=== PATIENT | female | born 1985 | race Caucasian/White ===

== ENCOUNTER 2016-07-17 17:33 | Emergency (ER) | payer OTHER ==
[~2016-07-17] VITALS: Ht 162.6 cm; Wt 68.0 kg
[~2016-07-17 17:33] MED LIST: CHOL10003; CLTR1PV45; HYDR-3720 PO; HYOS0.1217 PO; IBP800T PO; NAPR-243 PO; NITR100C10; TRAM-21 PO; TRM50T PO
--- NOTE | 2016-07-17 17:51 | ED General ---
General Chief Complaint: Laceration Stated Complaint: HAND LAC Nursing Triage Note: PT CO OF LAC BETWEEN THUMB AND FIRST FINGER, STATES GLASS SHARD FROM BROKEN BOWL THRU SKIN STATES PULLED OUT LARGE PIECE OF GLASS OUT. NO BLEEDING NOTED. PT R HAND SWOLLEN Nursing Sepsis Screen: No Definite Risk Source of Information: Patient Exam Limitations: No Limitations History of Present Illness Time Seen by Provider: 17:51 Initial Comments 31-year-old female patient presents to the emergency department with complaints of a laceration to the right hand between the first and second fingers. Patient reports moving a large shard of glass from the hand at home. States she was washing a glass bowl when the ball broke. Location Injury Occurred: home Timing/Duration: 1/2 Hour, Constant Modifying Factors: worse with Movement Allergies and Home Medications Allergies Coded Allergies: No Known Drug Allergies (Verified , 11/13/07) Home Medications Cephalexin 500 Mg Capsule #21 500 MG PO TID Prescribed by: CHRIS CUMMINS on 07/17/162031 Tramadol HCl 50 Mg Tablet #20 50 MG PO Q4H PRN PRN PAIN Prescribed by: CHRIS CUMMINS on 07/17/162031 Constitutional: no symptoms reported Musculoskeletal: see HPI joint pain (rt hand) joint swelling (rt hand) Skin: see HPI other (laceration rt hand) Psychiatric/Neurological: Denies Numbness, Denies Paresthesia, Denies Tingling , Denies Weakness All Other Systems Reviewed Negative Unless Noted: Yes (Negative excepted noted.) Past Ymslpke-Xlqhjy-Ppqnjp Hx Patient Social History Alcohol Use: Denies Use Recreational Drug Use: No Smoking Status: Never a Smoker Former Smoker/When Quit: Apr 04, 2014 Recent Foreign Travel: No Contact w/Someone Who Travel: No Recent Infectious Disease Expo: No Recent Hopitalizations: No Physical Abuse Screen: No Sexual Abuse: No Immunizations Up To Date Tetanus Booster (TDap): More than 5yrs Seasonal Allergies Seasonal Allergies: No Surgeries HX Surgeries: Yes (HAD TUBAL ) Surgeries: Abdominal, Appendectomy Respiratory Hx Respiratory Disorders: No Cardiovascular Hx Cardiac Disorders: No Neurological Hx Neurological Disorders: No Reproductive System Hx Reproductive Disorders: No Sexually Transmitted Disease: No HIV/AIDS: No Female Reproductive Disorders: Endometriosis RN VASCULAR History: IUD Genitourinary Hx Genitourinary Disorders: No Gastrointestinal Hx Gastrointestinal Disorders: No Musculoskeletal Hx Musculoskeletal Disorders: No Endocrine Hx Endocrine Disorders: No HEENT HX ENT Disorders: No Cancer Hx Cancer: No Psychosocial Hx Psychiatric Problems: No Behavioral Health Disorders: Anxiety Integumentary HX Skin/Integumentary Disorder: No Blood Transfusions Hx Blood Disorders: No Reviewed Nursing Assessment Reviewed/Agree w Nursing PMH: Yes Family Medical History Significant Family History: Heart Disease, Cancer Physical Exam Vital Signs Vital Sign - Last 12Hours 07/17/16 07/17/16 17:35 20:54 Temp 97.9 Pulse 85 Resp 18 B/P 119/69 Pulse Ox 100 O2 Delivery Room Air Capillary Refill : Less Than 3 Seconds General Appearance: No Apparent Distress WD/WN Cardiovascular: Normal Peripheral Pulses Extremity: Normal Capillary Refill Normal Range of Motion (patient unable to fully extend the thumb at the MCP joint.) Swelling (web space of the rt hand between the 1st and 2nd fingers with soft tissue tenderness. bony tenderness of the rt 1st and 2nd fingers. ) Other (1.5 cm irregular laceration in the web space of the rt hand between the 1st and 2nd fingers) Neurologic/Psychiatric: Alert Oriented x3 No Motor/Sensory Deficits (2 point discrimination intact the first, second, and third right fingers.) Normal Mood/ Affect Motor Weakness (patient unable to fully extend the thumb at the MCP joint.) Skin: Normal Color Warm/Dry Other (1.5 cm irregular laceration in the web space of the rt hand between the 1st and 2nd fingers) I&D : Site: rt hand Blade Size: 11 I & D Procedure: betadine prep sterile drapes applied sterile dressing applied Packing/Drain: 1/4 [place] Drain Progress 3 cm incision made overlying the palpable foreign body of the posterior hand. FB unable to be located. Skin edges reapproximated with 3-0 ethilon. rt anterior hand laceration then explored, but unable to locate the FB. 1/4 inch marciano drain placed and secured with 3-0 ethilon. blood loss minimal. patient tolerated the procedure well. Progress/Results/Core Measures Results/Orders My Orders Medications Given in ED Vital Signs/I&O Blood Pressure Mean: 86 Diagnostic Imaging Diagonstic Imaging: Xray Plain Films/CT/US/NM/MRI: hand Comments FINDINGS: There is soft tissue gas between the first and second metacarpals. There is no radiopaque foreign body. There is no evidence of fracture. IMPRESSION: Soft tissue gas between the first and second metacarpals is noted. There is no radiopaque foreign body or evidence of acute fracture. Dictated by: Dictated on workstation # [id number] Reviewed: Reviewed by Me (radiology report reviewed by me.) Departure Communication Progress Notes Patient instructed to follow-up with Dr. Amaro as an outpatient for recheck Impression Impression: Primary Impression: Laceration of hand Qualified Code: S61.411A - Laceration without foreign body of right hand, initial encounter Additional Impression: Tendon injury Disposition: HOME, SELF-CARE Condition: Improved Departure-Patient Inst. Decision time for Depature: 18:41 Referrals: BERTA AMARO,LOCAL PHYSICIAN (PCP) Primary Care Physician Patient Instructions: Laceration Repair With Stitches (DC) Add. Discharge Instructions: All discharge instructions reviewed with patient and/or family. Voiced understanding. Medications as instructed. Tylenol Extra Strength over-the- counter as directed for pain. Ibuprofen 800 mg by mouth every 8 hours as needed for pain. Elevate the right hand on pillows, ice pack for 20 minute intervals 6 times daily for 3 days, then heating pad or pack as needed for pain. You may remove the bandage tomorrow morning, shower with antibacterial soap, pat dry, apply triple antibiotics ointment twice daily for 3 days and cover with bandage. Avoid soiling the wound. Follow-up with Dr. Amaro as an outpatient for recheck and for suture removal. Call tomorrow morning for appointment time. Wrist brace as instructed. Follow-up with your family practitioner for recheck if needed. Return to the emergency department for worsened pain, redness, drainage, fever, or any other concerns. Scripts Tramadol HCl 50 Mg [id number] Mg PO Q4H PRN PAIN #20 TAB Ref 0 Prov:CHRIS CUMMINS 07/17/16 Cephalexin 500 Mg [id number] Mg PO TID #21 CAP Ref 0 Prov:CHRIS CUMMINS 07/17/16 Work/School Note: Work Release Form Date Seen in the Emergency Department: Jul 17, 2016 Return to Work: Jul 20, 2016 Other Restrictions Listed Below: left hand activities only until released by Dr. Amaro. Images Extremities-Upper 1 - Laceration 2 - Swelling, Tenderness 1 - Swelling, Tenderness CHRIS CUMMINS Jul 17, 2016 17:51 intervals 6 times daily for 3 days, then heating pad or pack as needed for pain. You may remove the bandage tomorrow morning, shower with antibacterial soap, pat dry, apply triple antibiotics ointment twice daily for 3 days and cover with bandage. Avoid soiling the wound. Follow-up with Dr. Amaro as an outpatient for recheck and for suture removal. Call tomorrow morning for appointment time. Wrist brace as instructed. Follow-up with your family practitioner for recheck if needed. Return to the emergency department for worsened pain, redness, drainage, fever, or any other concerns. Scripts Tramadol HCl 50 Mg [id number] Mg PO Q4H PRN PAIN #20 TAB Ref 0 Prov:CHRIS CUMMINS 07/17/16 Cephalexin 500 Mg [id number] Mg PO TID #21 CAP Ref 0 Prov:CHRIS CUMMINS 07/17/16 Work/School Note: Work Release Form Date Seen in the Emergency Department: Jul 17, 2016 Return to Work: Jul 20, 2016 Other Restrictions Listed Below: left hand activities only until released by Dr. Amaro. Images Extremities-Upper 1 - Laceration 2 - Swelling, Tenderness 1 - Swelling, Tenderness CHRIS CUMMINS Jul 17, 2016 17:51
[2016-07-17] MEDS ORDERED: TETANUS,DIPTH,PERTUSS P/F (BOOSTRIX) 0.5 ML VIAL IM STA (17:58)
--- NOTE | 2016-07-17 18:21 | Diagnostic Imaging Report ---
INDICATION: Laceration to right hand. EXAMINATION: AP, oblique and lateral views of the right hand were obtained. FINDINGS: There is soft tissue gas between the first and second metacarpals. There is no radiopaque foreign body. There is no evidence of fracture. IMPRESSION: Soft tissue gas between the first and second metacarpals is noted. There is no radiopaque foreign body or evidence of acute fracture. Dictated by: Dictated on workstation # [id number]
[2016-07-17] MEDS ORDERED: KETOROLAC 60 MG/2 ML VIAL IM STA (18:57)
[2016-07-17] MEDS ORDERED: LIDOCAINE 2% 20 ML (XYLOCAINE) VIAL INJ ONE (19:00)
[2016-07-17] MEDS ORDERED: BUPIVACAINE 0.5% 30 ML (SENSORCAINE) VIAL INJ ONE (19:00)
[2016-07-17] MEDS ORDERED: RX-TRAMADOL 50 MG (ULTRAM) TAB PPK#4 PO STA (20:29)
[2016-07-17] MEDS ORDERED: RX-CEPHALEXIN (KEFLEX) 250 MG CAP PPK#4 PO STA (20:29)
[2016-07-17] MEDS ORDERED: CEPH500C PO (20:32)
[2016-07-17] MEDS ORDERED: TRAM50TA2 PO (20:32)
[2016-07-17 20:54] VITALS: BP 115/60
== END 2016-07-17 20:54 | disposition home or self-care (01) ==
LOC: EDUNIT# 17:33 → ER 17:34
DX: S61.411A Laceration without foreign body of right hand, initial encounter (principal); S66.821A Laceration of other specified muscles, fascia and tendons at wrist and hand level, right hand, initial encounter; Z23 Encounter for immunization; W25.XXXA Contact with sharp glass, initial encounter; Y92.010 Kitchen of single-family (private) house as the place of occurrence of the external cause; Y93.G1 Activity, food preparation and clean up
CPT/HCPCS: 12001; 73130; 90471; 90715; 96372

== ENCOUNTER 2017-03-10 11:52 | Emergency (ER) | payer OTHER ==
[~2017-03-10] VITALS: Ht 162.6 cm; Wt 68.0 kg
[~2017-03-10 11:52] MED LIST changes: +CEPH500C PO; +TRAM50TA2 PO
--- OUTSIDE RECORDS SUMMARY | 2017-03-10 11:59 | XMS REPORT ---
Author Author ANTONIO GANDHI [facility] eClinicalWorks Address Unknown Phone Unavailable Care Team Providers Care Outreach Educator Name Role Phone ANTONIO GANDHI Unavailable Allergies No Known Allergies Problems Problem Type Condition Code Onset Dates Condition Status Problem History of ectopic Z87.59 Active Assessment Positive test Z32.01 Active Problem test-positive Z32.01 Active Medications No Known Medications Results No Known Results Summary Purpose eClinicalWorks Submission
--- OUTSIDE RECORDS SUMMARY | 2017-03-10 12:00 | XMS REPORT ---
Author Author ANTONIO GANDHI [facility] eClinicalWorks Address Unknown Phone Unavailable Care Team Providers Care Joist Setter Name Role Phone ANTONIO GANDHI Unavailable Allergies No Known Allergies Problems Problem Type Condition Code Onset Dates Condition Status Problem History of ectopic Z87.59 Active Problem test-positive Z32.01 Active Medications No Known Medications Results No Known Results Summary Purpose eClinicalWorks Submission
--- OUTSIDE RECORDS SUMMARY | 2017-03-10 12:00 | XMS REPORT ---
Author Author ANTONIO GANDHI [employer]Clinical[employer] Address Unknown Phone Unavailable Care Team Providers Care Urologist Md Name Role Phone ANTONIO GANDHI Unavailable Allergies, Adverse Reactions, Alerts Substance Reaction Event Type N.K.D.A. Info Not Available Non Drug Allergy Problems Problem Type Condition Code Onset Dates Condition Status Assessment History of ectopic Z87.59 Active Assessment Flank pain R10.9 Active Assessment Chills (without fever) R68.83 Active Assessment Vaginal irritation N89.8 Active Assessment Vaginal itching L29.8 Active Problem History of ectopic Z87.59 Active Assessment Urinary frequency R35.0 Active Problem test-positive Z32.01 Active Assessment Vaginal discharge N89.8 Active Assessment Yeast infection B37.9 Active Assessment test-positive Z32.01 Active Assessment Abdominal cramping R10.9 Active Medications Medication Code System Code Instructions Start Date End Date Status Dosage Clotrimazole [facility] [address]-15 1 % Vaginal Once a day May 11, 2015Apr 1 application at bedtime Macrobid [facility] [address]-85 100 MG Orally every 12 hrs May 11, 2015Apr 1 capsule with food Procedures Procedure Coding System Code Date Office Visit, Est Pt., Level 4 CPT-4 62375 May 11, 2015 BLOOD TYPING, RH (D) CPT-4 81485 May 11, 2015 BLOOD TYPING, ABO CPT-4 71508 May 11, 2015 CHORIONIC GONADOTROPIN ASSAY CPT-4 90137 May 11, 2015 VENIPUNCT, ROUTINE* CPT-4 89933 May 11, 2015 TRICHOMONAS VAGIN, DIR PROBE CPT-4 18211 May 11, 2015 URINE TEST CPT-4 66490 May 11, 2015 URINE CULTURE/COLONY COUNT CPT-4 03934 May 11, 2015 URINALYSIS, AUTO, W/O SCOPE CPT-4 75673 May 11, 2015 No Charge CPT-4 12303 May 11, 2015 CULTURE, BACTERIA, OTHER CPT-4 16465 May 11, 2015 Vital Signs Date/Time: May 11, 2015 Temperature 98.4 F Weight 148.5 lbs Height 64 in BMI 25.49 Index Blood Pressure Diastolic 68 mmHg Blood Pressure Systolic 106 mmHg Cardiac Monitoring Heart Rate 76 bpm Results Name Result Date Reference Range Unit Abnormality Flag TEST, URINE (IN HOUSE) TRICHOMONAS (IN HOUSE) Summary Purpose eClinicalWorks Submission
--- OUTSIDE RECORDS SUMMARY | 2017-03-10 12:00 | XMS REPORT ---
Author Author ANTONIO GANDHI [facility] eClinicalWorks Address Unknown Phone Unavailable Care Team Providers Care Manager Intern Name Role Phone ANTONIO GANDHI Unavailable Allergies No Known Allergies Problems Problem Type Condition Code Onset Dates Condition Status Problem History of ectopic Z87.59 Active Problem test-positive Z32.01 Active Medications No Known Medications Results No Known Results Summary Purpose eClinicalWorks Submission
--- OUTSIDE RECORDS SUMMARY | 2017-03-10 12:00 | XMS REPORT ---
Author Author LEX LEONE [facility] eClinicalWorks Address Unknown Phone Unavailable Care Team Providers Care Director Franchise Sales Name Role Phone LEX LEONE Unavailable Allergies No Known Allergies Problems Problem Type Condition Code Onset Dates Condition Status Problem History of ectopic Z87.59 Active Problem test-positive Z32.01 Active Medications Medication Code System Code Instructions Start Date End Date Status Dosage Amoxicillin [facility] [address]-66 875 MG Orally Twice a day Jul 05, 2015 Jul 15, 2015 1 tablet Results No Known Results Summary Purpose eClinicalWorks Submission
--- OUTSIDE RECORDS SUMMARY | 2017-03-10 12:00 | XMS REPORT ---
Author Author JORGE DORSEY Organization eClinicalWorks Address Unknown Phone Unavailable Care Team Providers Care Correctional Guard Name Role Phone JORGE DORSEY CP Unavailable Allergies, Adverse Reactions, Alerts Substance Reaction Event Type N.K.D.A. Info Not Available Non Drug Allergy Problems Problem Type Condition ICD-9 Code Onset Dates Condition Status Problem Acute sinusitis, unspecified 461.9 Active Assessment Otitis media of left ear 382.9 Active Problem Dysuria 788.1 Active Medications Medication Code System Code Instructions Start Date End Date Status Dosage Augmentin [facility] [address]-70 875-125 MG Orally every 12 hrs Mar 11, 2015 Mar 21, 2015 1 tablet Multivitamins [facility] [address] Orally not defined Procedures Procedure Coding System Code Date Office Visit, Est Pt., Level 3 CPT-4 33761 Mar 11, 2015 Vital Signs Date/Time: Mar 11, 2015 Temperature 98.6 F Weight 142.1 lbs Height 64 in BMI 24.39 Index Blood Pressure Diastolic 72 mmHg Blood Pressure Systolic 118 mmHg Cardiac Monitoring Heart Rate 84 bpm Results No Known Results Summary Purpose eClinicalWorks Submission
--- OUTSIDE RECORDS SUMMARY | 2017-03-10 12:00 | XMS REPORT ---
Author NIKOLE Gomes [facility] eClinicalWorks Address Unknown Phone Unavailable Care Team Providers Care Croze Cutter Name Role Phone NIKOLE KNOX CP Unavailable Allergies, Adverse Reactions, Alerts Substance Reaction Event Type Hydrocodone-Acetaminophen tongue swelling Drug Allergy Problems Problem Type Condition Code Onset Dates Condition Status Problem History of ectopic Z87.59 Active Assessment Pharyngitis due to other organism J02.8 Active Problem test-positive Z32.01 Active Medications Medication Code System Code Instructions Start Date End Date Status Dosage Vitamin D [facility] [address] 400 UNIT Orally Once a day 2 capsules Vitamin E [facility] [address]-01 400 UNIT Orally Once a day 1 capsule Amoxicillin [facility] [address]-47 500 MG Orally 3 times a day May 18, 2016 May 28, 2016 1 capsule Diflucan [facility] [address]-48 150 MG Orally May 18, 2016 1 tablet Procedures Procedure Coding System Code Date Office Visit, Est Pt., Level 3 CPT-4 02880 May 18, 2016 Vital Signs Date/Time: May 18, 2016 Cardiac Monitoring Heart Rate 76 bpm Weight 160 lbs Height 64 in BMI 27.46 Index Blood Pressure Diastolic 68 mmHg Blood Pressure Systolic 112 mmHg Results No Known Results Summary Purpose eClinicalWorks Submission
--- OUTSIDE RECORDS SUMMARY | 2017-03-10 12:00 | XMS REPORT ---
Author Author LEX LEONE Organization eClinicalWorks Address Unknown Phone Unavailable Care Team Providers Care Organic Lab Worker Name Role Phone LEX LEONE CP Unavailable Allergies, Adverse Reactions, Alerts Substance Reaction Event Type Hydrocodone-Acetaminophen tongue swelling Drug Allergy Problems Problem Type Condition Code Onset Dates Condition Status Problem History of ectopic Z87.59 Active Assessment Sore throat J02.9 Active Problem test-positive Z32.01 Active Medications Medication Code System Code Instructions Start Date End Date Status Dosage Amoxicillin [facility] [address]-38 875 MG Orally Twice a day Jul 05, 2015 Jul 15, 2015 1 tablet Procedures Procedure Coding System Code Date Office Visit, Est Pt., Level 3 CPT-4 79890 Jul 05, 2015 STREP A ASSAY W/OPTIC CPT-4 80941 Jul 05, 2015 Vital Signs Date/Time: Jul 05, 2015 Temperature 101.3 F Weight 155.7 lbs Height 64 in BMI 26.72 Index Blood Pressure Diastolic 66 mmHg Blood Pressure Systolic 108 mmHg Cardiac Monitoring Heart Rate 92 bpm Results Name Result Date Reference Range Unit Abnormality Flag STREP A (IN HOUSE) ----STREP A Positive [id number] ----Control + [id number] ----Lot # [id number] ----Exp date 05/22/201620150705 Summary Purpose eClinicalWorks Submission
--- OUTSIDE RECORDS SUMMARY | 2017-03-10 12:00 | XMS REPORT ---
Author Author ANTONIO GANDHI [facility] eClinicalWorks Address Unknown Phone Unavailable Care Team Providers Care Mobility Engineer Name Role Phone ANTONIO GANDHI Unavailable Allergies No Known Allergies Problems Problem Type Condition Code Onset Dates Condition Status Problem History of ectopic Z87.59 Active Problem test-positive Z32.01 Active Medications No Known Medications Results No Known Results Summary Purpose eClinicalWorks Submission
--- OUTSIDE RECORDS SUMMARY | 2017-03-10 12:00 | XMS REPORT ---
Author Author ANTONIO GANDHI [facility] eClinicalWorks Address Unknown Phone Unavailable Care Team Providers Care Cupola Melter Name Role Phone ANTONIO GANDHI Unavailable Allergies No Known Allergies Problems Problem Type Condition Code Onset Dates Condition Status Problem Acute sinusitis, unspecified 461.9 Active Assessment Left lower quadrant pain R10.32 Active Problem Dysuria 788.1 Active Assessment Positive test Z32.01 Active Medications No Known Medications Results No Known Results Summary Purpose eClinicalWorks Submission
[2017-03-10 12:19] LABS: BILIRUBIN,URINE NEGATIVE (NEGATIVE); KETONES,URINE NEGATIVE (NEGATIVE); LEUKOCYTE ESTERASE ,URINE 2+ (NEGATIVE); NITRITE,URINE NEGATIVE (NEGATIVE); PH,URINE 5 (5-9); PROTEIN,URINE NEGATIVE (NEGATIVE); UROBILINOGEN,URINE NORMAL (NORMAL)
[2017-03-10 12:28] LABS: SQUAMOUS EPITHELIAL CELL,UR 25-50 /HPF; WBC,URINE 0-2 /HPF
--- NOTE | 2017-03-10 13:12 | ED Abdominal Pain ---
General Chief Complaint: Abdominal/GI Problems Stated Complaint: ABD PAIN/APPROX 3 MOS PG PER PT Nursing Triage Note: Patient reports diffuse abdomen pain with dysuria x 1 week. patient reports is but not sure how far along or due date Sepsis Screen: No Definite Risk Source of Information: Patient Exam Limitations: No Limitations History of Present Illness Time Seen By Provider: 13:10 Initial Comments To ER with reports of diffuse abdominal pain since yesterday. No nausea or vomiting. She does have dysuria. Last menstrual period towards the end of December and she's had a positive test at [facility]. She's not had an ultrasound. Her pain is suprapubic and epigastric. She believes it may be her gallbladder. She last had food at 11 a.m. Timing/Duration: 1-2 Days Severity/Quality: Moderate Location: Generalized Abdomen Radiation: No Radiation Activities at Onset: None Allergies and Home Medications Allergies Coded Allergies: hydrocodone (Verified Allergy, Unknown, 03/10/17) Home Medications No Active Prescriptions or Reported Meds Review of Systems Constitutional: see HPI EENTM: No Symptoms Reported Respiratory: No Symptoms Reported Cardiovascular: No Symptoms Reported Gastrointestinal: See HPI, Abdominal Pain Genitourinary: No Symptoms Reported Musculoskeletal: no symptoms reported Skin: no symptoms reported Psychiatric/Neurological: No Symptoms Reported Endocrine: No Symptoms Reported Hematologic/Lymphatic: No Symptoms Reported Past Otiszhi-Dkdlgb-Scmbkm Hx Patient Social History Alcohol Use: Denies Use Recreational Drug Use: Yes Drug of Choice: THC BEFORE Recent Foreign Travel: No Contact w/Someone Who Travel: No Recent Infectious Disease Expo: No Recent Hopitalizations: No Physical Abuse: No Sexual Abuse: No Immunizations Up To Date Tetanus Booster (TDap): More than 5yrs Seasonal Allergies Seasonal Allergies: No Surgeries Surgeries: Abdominal, Appendectomy Reproductive System Last Menstrual Period: Dec 27, 2016 Hx Reproductive Disorders: No Sexually Transmitted Disease: No HIV/AIDS: No Female Reproductive Disorders: 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 Behavioral Health Disorders: Anxiety Suicide Risk Score: 0 Family Medical History Significant Family History: Heart Disease, Cancer Physical Exam Vital Signs VS - Last 72 Hours, by Label 03/10/17 12:05 Temp 98.1 Pulse 82 Resp 18 B/P (MAP) 121/74 Pulse Ox 98 O2 Delivery Room Air Capillary Refill : Less Than 3 Seconds General Appearance: WD/WN, no apparent distress HEENT: PERRL/EOMI, normal ENT inspection Neck: non-tender, full range of motion Respiratory: normal breath sounds, no respiratory distress, no accessory muscle use Gastrointestinal: normal bowel sounds, soft, tenderness Extremities: normal range of motion, non-tender Neurologic/Psychiatric: alert, normal mood/affect, oriented x 3 Skin: normal color, warm/dry Progress/Results/Core Measures Results/Orders Lab Results Laboratory Tests Test 03/10/17 12:10 03/10/17 13:10 Range/Units Urine Color YELLOW Urine Clarity SLIGHTLY CLOUDY Urine pH 5 5-9 Urine Specific [place] 1.025 H 1.016-1.022 Urine Protein NEGATIVE NEGATIVE Urine Glucose (UA) NEGATIVE NEGATIVE Urine Ketones NEGATIVE NEGATIVE Urine Nitrite NEGATIVE NEGATIVE Urine Bilirubin NEGATIVE NEGATIVE Urine Urobilinogen NORMAL NORMAL MG/DL Urine Leukocyte Esterase 2+ H NEGATIVE Urine RBC (Auto) 1+ H NEGATIVE Urine RBC NONE /HPF Urine WBC 0-2 /HPF Urine Squamous Epithelial Cells 25-50 H /HPF Urine Crystals NONE /LPF Urine Bacteria TRACE /HPF Urine Casts NONE /LPF Urine Mucus NEGATIVE /LPF Urine Culture Indicated NO White Blood Count 9.7 4.3-11.0 10^3/uL Red Blood Count 4.47 4.35-5.85 10^6/uL Hemoglobin 12.9 11.5-16.0 G/DL Hematocrit 38 35-52 % Mean Corpuscular Volume 86 80-99 FL Mean Corpuscular Hemoglobin 29 25-34 PG Mean Corpuscular Hemoglobin Concent 34 32-36 G/DL Red Cell Distribution Width 12.1 10.0-14.5 % Platelet Count 280 130-400 10^3/uL Mean Platelet Volume 9.6 7.4-10.4 FL Neutrophils (%) (Auto) 69 42-75 % Lymphocytes (%) (Auto) 23 12-44 % Monocytes (%) (Auto) 7 0-12 % Eosinophils (%) (Auto) 1 0-10 % Basophils (%) (Auto) 0 0-10 % Neutrophils # (Auto) 6.7 1.8-7.8 X 10^3 Lymphocytes # (Auto) 2.2 1.0-4.0 X 10^3 Monocytes # (Auto) 0.7 0.0-1.0 X 10^3 Eosinophils # (Auto) 0.1 0.0-0.3 10^3/uL Basophils # (Auto) 0.0 0.0-0.1 10^3/uL Sodium Level 139 135-145 MMOL/L Potassium Level 4.1 3.6-5.0 MMOL/L Chloride Level 107 98-107 MMOL/L Carbon Dioxide Level 25 21-32 MMOL/L Anion Gap 7 5-14 MMOL/L Blood Urea Nitrogen 11 7-18 MG/DL Creatinine 0.76 0.60-1.30 MG/DL Estimat Glomerular Filtration Rate > 60 BUN/Creatinine Ratio 14 Glucose Level 82 70-105 MG/DL Calcium Level 9.2 8.5-10.1 MG/DL Total Bilirubin 0.3 0.1-1.0 MG/DL Aspartate Amino Transf (AST/SGOT) 14 5-34 U/L Alanine Aminotransferase (ALT/SGPT) 12 0-55 U/L Alkaline Phosphatase 52 40-136 U/L Total Protein 6.4 6.4-8.2 GM/DL Albumin 3.8 3.2-4.5 GM/DL My Orders Orders - AHSAN THOMAS APRN Ua Culture If Indicated (03/10/17 12:14) Urine Bedside (03/10/17 12:14) Cbc With Automated Diff (03/10/17 13:04) Hcg,Quantitative (03/10/17 13:04) Us Ob Single Fetus<14 [id number] (03/10/17 13:05) Comprehensive Metabolic Panel (03/10/17 13:37) Vital Signs/I&O Vital Sign - Last 12Hours 03/10/17 12:05 Temp 98.1 Pulse 82 Resp 18 B/P (MAP) 121/74 Pulse Ox 98 O2 Delivery Room Air Blood Pressure Mean: 90 Point of Care Testing Urine -Bedside: Positive Diagnostic Imaging Diagonstic Imaging: Ultrasound Comments NAME: JUANJO YBARRA [facility] REC#: [id number] PT STATUS: REG ER : 1985 PHYSICIAN: AHSAN THOMAS APRN ADMIT DATE: 03/10/17/ER Signed Date of Exam:03/10/17 US OB SINGLE FETUS<14 [id number] First trimester OB ultrasound. INDICATION: Abdominal pain. FINDINGS: There is a normal-appearing single intrauterine . An embryo is seen with cardiac activity at 172 beats per minute. The crown-rump length is at 10 weeks and 5 days. LAM is 10/01/17. IMPRESSION: Live single intrauterine . Dictated by: Dictated on workstation # [id number] Dict: 03/10/17 1337 Trans: 03/10/17 1339 [facility] [id number] Interpreted by: ROSANNA COBIAN MD Electronically signed by: ROSANNA COBIAN MD 03/10/17 1339 Departure Impression Impression: Primary Impression: Nonspecific abdominal pain Disposition: 01 HOME, SELF-CARE Condition: Stable Departure-Patient Inst. Decision time for Depature: 13:59 Referrals: CAROLEE GUO BETHANY N MD FENECH,MATTY WHITLEY MD,HARLEY Yoo MD NO,LOCAL PHYSICIAN (PCP) Primary Care Physician CHARISMA ART DO Patient Instructions: Acute Abdomen (Belly Pain), Adult (DC) Add. Discharge Instructions: 1. Follow-up with your doctor later this week for recheck 2. Return to ER for any concerns 3. All discharge instructions reviewed with patient and/or family. Voiced understanding. Scripts No Active Prescriptions or Reported Meds AHSAN THOMAS APRN Mar 10, 2017 13:12
[2017-03-10 13:18] LABS: BASOPHILS % (AUTO) 0 % (0-10); EOSINOPHILS # (AUTO) 0.1 10^3/uL (0.0-0.3); EOSINOPHILS % (AUTO) 1 % (0-10); LYMPHOCYTES # (AUTO) 2.2 X 10^3 (1.0-4.0); LYMPHOCYTES % (AUTO) 23 % (12-44); MEAN CORPUSCULAR HEMOGLOBIN 29 PG (25-34); MEAN CORPUSCULAR HGB CONC 34 G/DL (32-36); MEAN CORPUSCULAR VOLUME 86 FL (80-99); MEAN PLATELET VOLUME 9.6 FL (7.4-10.4); MONOCYTES # (AUTO) 0.7 X 10^3 (0.0-1.0); MONOCYTES % (AUTO) 7 % (0-12); NEUTROPHILS # (AUTO) 6.7 X 10^3 (1.8-7.8); NEUTROPHILS % (AUTO) 69 % (42-75); PLATELET COUNT 280 10^3/uL (130-400); RED BLOOD COUNT 4.47 10^6/uL (4.35-5.85); RED CELL DISTRIBUTION WIDTH 12.1 % (10.0-14.5); WHITE BLOOD COUNT 9.7 10^3/uL (4.3-11.0)
--- NOTE | 2017-03-10 13:41 | Diagnostic Imaging Report ---
First trimester OB ultrasound. INDICATION: Abdominal pain. FINDINGS: There is a normal-appearing single intrauterine . An embryo is seen with cardiac activity at 172 beats per minute. The crown-rump length is at 10 weeks and 5 days. LAM is 10/01/17. IMPRESSION: Live single intrauterine . Dictated by: Dictated on workstation # [id number]
[2017-03-10 13:56] LABS: ALANINE AMINOTRANSFERASE 12 U/L (0-55); ALBUMIN 3.8 GM/DL (3.2-4.5); ANION GAP 7 MMOL/L (5-14); ASPARTATE AMINO TRANSFERASE 14 U/L (5-34); BILIRUBIN,TOTAL 0.3 MG/DL (0.1-1.0); BLOOD UREA NITROGEN 11 MG/DL (7-18); BUN/CREATININE RATIO 14; CALCIUM 9.2 MG/DL (8.5-10.1); CARBON DIOXIDE 25 MMOL/L (21-32); CHLORIDE 107 MMOL/L (98-107); CREATININE SERUM 0.76 MG/DL (0.60-1.30); GFR ESTIMATED > 60; GLUCOSE 82 MG/DL (70-105); POTASSIUM 4.1 MMOL/L (3.6-5.0); SODIUM 139 MMOL/L (135-145); TOTAL PROTEIN 6.4 GM/DL (6.4-8.2)
[2017-03-10 14:04] VITALS: BP 121/74
== END 2017-03-10 14:03 | disposition home or self-care (01) ==
LOC: EDUNIT# 11:52 → ER 11:55
DX: O26.891 Other specified pregnancy related conditions, first trimester (principal); R10.84 Generalized abdominal pain; O99.341 Other mental disorders complicating pregnancy, first trimester; F41.9 Anxiety disorder, unspecified; Z3A.10 10 weeks gestation of pregnancy; Z90.49 Acquired absence of other specified parts of digestive tract; Z82.49 Family history of ischemic heart disease and other diseases of the circulatory system
CPT/HCPCS: 36415; 76801; 80053; 81000; 84702; 84703; 85025; 99283

== ENCOUNTER 2021-01-15 08:47 | Emergency (ER) | payer SELFPAY ==
[~2021-01-15] VITALS: Ht 162.5 cm; Wt 75.0 kg
[~2021-01-15 08:47] MED LIST changes: +CLOT45CR28; -CLTR1PV45; -TRAM50TA2 PO
[2021-01-15 10:07] LABS: BASOPHILS % (AUTO) 0 % (0-10); EOSINOPHILS # (AUTO) 0.1 10^3/uL (0.0-0.3); EOSINOPHILS % (AUTO) 1 % (0-10); HEMATOCRIT 41 % (35-52); HEMOGLOBIN 13.9 g/dL (11.5-16.0); LYMPHOCYTES # (AUTO) 1.9 10^3/uL (1.0-4.0); LYMPHOCYTES % (AUTO) 26 % (12-44); MEAN CORPUSCULAR HEMOGLOBIN 30 pg (25-34); MEAN CORPUSCULAR HGB CONC 34 g/dL (32-36); MEAN CORPUSCULAR VOLUME 88 fL (80-99); MEAN PLATELET VOLUME 9.5 fL (9.0-12.2); MONOCYTES # (AUTO) 0.6 10^3/uL (0.0-1.0); MONOCYTES % (AUTO) 8 % (0-12); NEUTROPHILS # (AUTO) 4.6 10^3/uL (1.8-7.8); NEUTROPHILS % (AUTO) 64 % (42-75); PLATELET COUNT 293 10^3/uL (130-400); WHITE BLOOD COUNT 7.2 10^3/uL (4.3-11.0)
--- NOTE | 2021-01-15 10:10 | ED GU-Female ---
General Chief Complaint: OB < 20 WEEKS Stated Complaint: VAGINAL BLEEDING;9 WKS PREG Nursing Triage Note: AMB TO ROOM IS 9 WEEKS PREG AND HAS BEEN HAVING SPOTTING AND CRAMPING FOR 1 WEEK. Source: patient Exam Limitations: no limitations History of Present Illness Date Seen by Provider: Jan 15, 2021 Time Seen by Provider: 09:39 Initial Comments Here with report of vaginal bleeding over the last week that started as spotting but has increased. Has lower abdominal pain that she states feels like a menstrual period. She does have home test that was positive for . Does have history of tubal with right tube removed and right appendectomy afterwards. Denies nausea or vomiting. Patient has had to have RhoGam injections previously with . Timing/Duration: week, getting worse Severity/Quality: mild, cramping Location: suprapubic Radiation: LLQ Activities at Onset: none Sexual [place] History: less than 2 months ago Associated Symptoms: abdominal pain; No dysuria, No fever/chills, No nausea/vomiting, No urinary frequency Allergies and Home Medications Allergies Coded Allergies: codeine (Verified Allergy, Unknown, 01/15/21) hydrocodone (Verified Allergy, Unknown, 03/10/17) Home Medications No Active Prescriptions or Reported Meds Patient Home Medication List Home Medication List Reviewed: Yes Review of Systems Review of Systems Constitutional: see HPI; No chills, No fever EENTM: no symptoms reported Respiratory: No cough, No short of breath Cardiovascular: no symptoms reported Gastrointestinal: abdominal pain; No nausea, No vomiting Genitourinary: see HPI Musculoskeletal: No back pain, No muscle pain Skin: no symptoms reported All Other Systemes Reviewed Negative Unless Noted: Yes Past Rjbervn-Vynekz-Tnuiwu Hx Patient Social History Tobacco Use?: No Substance use?: No Alcohol Use?: No Pt feels they are or have been: No Immunizations Up To Date Tetanus Booster (TDap): More than 5yrs Seasonal Allergies Seasonal Allergies: No Past Medical History Surgeries: Yes (Tubal with right tube removed) Abdominal, Appendectomy Last Menstrual Period: November 12, 2020 Reproductive Disorders: No Female 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 oz. 68.736981ji; 28.00 BMI Method:Stated General Appearance: WD/WN, no apparent distress HEENT: PERRL/EOMI, pharynx normal Neck: full range of motion, supple Cardiovascular: regular rate, rhythm, no murmur Respiratory: lungs clear, normal breath sounds Gastrointestinal: non tender, soft Extremities: non-tender, normal inspection Neurologic/Psychiatric: alert, oriented x 3 Skin: normal color, warm/dry Progress/Results/Core Measures Suspected Sepsis SIRS Temperature: Pulse: 83 Respiratory Rate: 18 Laboratory Tests 01/15/21 10:00: White Blood Count 7.2 Blood Pressure 115 /79 Mean: 91 Laboratory Tests 01/15/21 10:00: Creatinine 0.75, Platelet Count 293 Results/Orders Lab Results Laboratory Tests Test 01/15/21 10:00 Range/Units White Blood Count 7.2 4.3-11.0 10^3/uL Red Blood Count 4.71 3.80-5.11 10^6/uL Hemoglobin 13.9 11.5-16.0 g/dL Hematocrit 41 35-52 % Mean Corpuscular Volume 88 80-99 fL Mean Corpuscular Hemoglobin 30 25-34 pg Mean Corpuscular Hemoglobin Concent 34 32-36 g/dL Red Cell Distribution Width 11.9 10.0-14.5 % Platelet Count 293 130-400 10^3/uL Mean Platelet Volume 9.5 9.0-12.2 fL Immature Granulocyte % (Auto) 0 % Neutrophils (%) (Auto) 64 42-75 % Lymphocytes (%) (Auto) 26 12-44 % Monocytes (%) (Auto) 8 0-12 % Eosinophils (%) (Auto) 1 0-10 % Basophils (%) (Auto) 0 0-10 % Neutrophils # (Auto) 4.6 1.8-7.8 10^3/uL Lymphocytes # (Auto) 1.9 1.0-4.0 10^3/uL Monocytes # (Auto) 0.6 0.0-1.0 10^3/uL Eosinophils # (Auto) 0.1 0.0-0.3 10^3/uL Basophils # (Auto) 0.0 0.0-0.1 10^3/uL Immature Granulocyte # (Auto) 0.0 0.0-0.1 10^3/uL Sodium Level 138 135-145 MMOL/L Potassium Level 4.0 3.6-5.0 MMOL/L Chloride Level 105 98-107 MMOL/L Carbon Dioxide Level 16 L 21-32 MMOL/L Anion Gap 17 H 5-14 MMOL/L Blood Urea Nitrogen 8 7-18 MG/DL Creatinine 0.75 0.60-1.30 MG/DL Estimat Glomerular Filtration Rate 89 BUN/Creatinine Ratio 11 Glucose Level 98 70-105 MG/DL Calcium Level 9.1 8.5-10.1 MG/DL Human Chorionic Gonadotropin, Quant 73345 H <5 MIU/ML My Orders Orders - BARRY SPAIN MD Cbc With Automated Diff (01/15/21 09:48) Hcg,Quantitative (01/15/21 09:48) Abo Rh Type (01/15/21 09:48) Basic Metabolic Panel (01/15/21 09:48) Us Ob<14 Wks Sngle W/Transvag (01/15/21 09:48) Rh Immune Globulin Rhophylac (01/15/21 11:06) Rhogam Administration (01/15/21 11:06) Vital Signs/I&O 01/15/21 09:12 Temp 36.9 Pulse 83 Resp 18 B/P (MAP) 115/79 (91) Pulse Ox 100 O2 Delivery Room Air Capillary Refill : Less Than 3 Seconds Blood Pressure Mean: 91 Progress Note : Progress Note Seen and evaluated. We will check labs including blood type for verification. hCG quantitative level ordered. Ultrasound pelvis OB less than 14 weeks ordered. Monitor patient. 1153: Ultrasound does show a gestational sac at 6 weeks. Quant is 23,000. This does appear to be miscarriage. I did discuss this with the patient. She is a negative and does require RhoGam. This was ordered and is being given. She will need follow-up in the clinic which I will help to establish. She was supposed to be set up with Dr. Mcghee. Patient will follow up with clinic for repeat checks and she will initiate [id number]-mlo-jyjhwyz ibuprofen and Tylenol as needed for pain. Discharged home with return precautions. Patient verbalized understanding instructions and agreement with plan. Diagnostic Imaging Diagonstic Imaging: Ultrasound Plain Films/CT/US/NM/MRI: pelvis Comments NAME: JUANJO LAUGHLIN [facility] REC#: [id number] PT STATUS: REG ER : 1985 PHYSICIAN: BARRY SPAIN MD ADMIT DATE: 01/15/21/ER Signed Date of Exam:01/15/21 US OB<14 WKS SNGLE W/TRANSVAG TECHNIQUE: Live grayscale and color Doppler ultrasound was performed over the gravid uterus. REASON FOR EXAM: Vaginal bleeding. COMPARISON: None. FINDINGS: A sonolucent focus is seen within the endometrium measuring 1.3 cm. This demonstrates decidual reaction. There are somewhat irregular contours of this gestational sac. This would correspond with a 6 week 1 day gestation. A yolk sac is visualized. No pole is seen at this time. No heart tones are present. The right ovary is visualized measuring 2.4 x 1.2 x 2.3 cm. The left ovary is not visualized due to overlying bowel gas. No evidence of adnexal masses. No free fluid is seen in the pelvis. IMPRESSION: 1. Possible early gestation with a gestational sac measuring 1.3 cm corresponding with a 6 week 1 day gestation. These are discordant with the clinical dates. No heart tone or pole is seen. The findings are somewhat concerning for failed . Recommend followup with serial beta hCGs and pelvic ultrasound as indicated. 2. Nonvisualization of the left ovary due to overlying bowel gas. The right ovary is visualized and has a normal appearance. No free fluid is seen in the pelvis. Dictated by: Dictated on workstation # [id number] Dict: 01/15/21 1107 Trans: 01/15/21 1116 [id number] Interpreted by: CHRISTIAN WARREN DO Electronically signed by: CHRISTIAN WARREN DO 01/15/21 1116 Departure Impression Primary Impression: Incomplete miscarriage Disposition: 01 HOME, SELF-CARE Condition: Stable Departure-Patient Inst. Decision time for Depature: 11:55 Referrals: MATTY MCGHEE MD NO,LOCAL PHYSICIAN (PCP) Primary Care Physician Patient Instructions: Miscarriage (DC) Add. Discharge Instructions: All discharge instructions reviewed with patient and/or family. Voiced understanding. You may take Tylenol 1000 mg every 6-8 hours as needed for pain. You may take ibuprofen 600 mg every 8 hours as needed for pain. Drink plenty of fluids and get plenty of rest. Return for worse pain, fever, bleeding greater than 2 large pads per hour for more than 2 hours, weakness or other concerns as needed. You do need to follow-up in the clinic this week for recheck and further evaluation. Call clinic today for appointment for concerns for miscarriage. Your quantitative hCG was 23,400. A copy of your chart was sent to the clinic. Scripts No Active Prescriptions or Reported Meds Copy Copies To 1: MATTY MCGHEE MD, TIMOTHY D MD Jan 15, 2021 10:10
[2021-01-15 10:17] LABS: CALCIUM 9.1 MG/DL (8.5-10.1)
[2021-01-15 10:22] LABS: CREATININE SERUM 0.75 MG/DL (0.60-1.30)
--- NOTE | 2021-01-15 11:15 | Diagnostic Imaging Report ---
TECHNIQUE: Live grayscale and color Doppler ultrasound was performed over the gravid uterus. REASON FOR EXAM: Vaginal bleeding. COMPARISON: None. FINDINGS: A sonolucent focus is seen within the endometrium measuring 1.3 cm. This demonstrates decidual reaction. There are somewhat irregular contours of this gestational sac. This would correspond with a 6 week 1 day gestation. A yolk sac is visualized. No pole is seen at this time. No heart tones are present. The right ovary is visualized measuring 2.4 x 1.2 x 2.3 cm. The left ovary is not visualized due to overlying bowel gas. No evidence of adnexal masses. No free fluid is seen in the pelvis. IMPRESSION: 1. Possible early gestation with a gestational sac measuring 1.3 cm corresponding with a 6 week 1 day gestation. These are discordant with the clinical dates. No heart tone or pole is seen. The findings are somewhat concerning for failed . Recommend followup with serial beta hCGs and pelvic ultrasound as indicated. 2. Nonvisualization of the left ovary due to overlying bowel gas. The right ovary is visualized and has a normal appearance. No free fluid is seen in the pelvis. Dictated by: Dictated on workstation # [id number]
[2021-01-15 12:29] VITALS: BP 114/76
== END 2021-01-15 12:34 | disposition home or self-care (01) ==
LOC: EDUNIT# 08:47 → ER 08:51
DX: O03.4 Incomplete spontaneous abortion without complication (principal); Z90.49 Acquired absence of other specified parts of digestive tract; Z3A.01 Less than 8 weeks gestation of pregnancy
CPT/HCPCS: 36415; 76801; 76817; 80048; 84702; 85025; 86900; 86901; 96372

== ENCOUNTER 2021-01-26 16:00 | Day surgery (SDC) | payer MEDICAID, OTHER ==
[~2021-01-26] VITALS: Ht 162.6 cm; Wt 72.7 kg
[~2021-01-26 16:00] MED LIST changes: +GENTAMICIN (ADULT) INJECTION 0.1 MG in NS (IVPB) 100 ML IV NR; +GENTAMICIN IV NR; +NS IV NR
--- NOTE | 2021-01-26 16:22 | History & Physical ---
HPI History of Present Illness: 35 yo female was initially seen in ER on 01/15 with concern for miscarriage with an LMP of 11/12, had an ultrasound showing 6 week gestational sac without pole and HCG 23,400. She had heavy bleeding shortly after the ER visit which improved somewhat and she was seen in clinic on 01/22 and had normal vital signs and moderate cramping but had not been taking any medications. She deferred pelvic exam at that time, but urine GC/chlamydia was neg and repeat HCG was 4958, hemoglobin 12.7. After that visit, she started to have more pain, vaginal discharge and pain and continued to have bleeding like a period along with dizziness, so she was seen in clinic again today 01/26 and found to have tachycardia and blood pressure 90/72. Hemoglobin 12.8 in clinic. Pelvic exam showed open cervix with yellowish, non-foul discharge and genital cultures were done. She was sent for admission/observation due to concern about persistent heavy bleeding with worsening pain and tachycardia concerning for possible endometritis and/or retained products. She has not had any known fever. She does have a history of 3 prior miscarriages and an ectopic with right tubal resection in 2012. 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 Patients Allergies have been reviewed. Allergies Coded Allergies: codeine (Verified Allergy, Unknown, 01/15/21) hydrocodone (Verified Allergy, Unknown, 03/10/17) OWI-Bgmvco-Zdngok Hx Patient Social History Drug of Choice: THC BEFORE Former smoker/When Quit: Apr 04, 2014 Recent Hopitalizations: No Immunizations Up To Date Tetanus Booster (TDap): More than 5yrs Past Medical History PMHx: Endometriosis SurgHx: Appendectomy Ectopic with right tubal resection Family Medical History Significant Family History: Heart Disease, Cancer Review of Systems ([facility]) Constitutional: chills, malaise Cardiovascular: no symptoms reported Gastrointestinal: abdominal pain, nausea Genitourinary: frequency Musculoskeletal: no symptoms reported Skin: no symptoms reported Psychiatric/Neurological: Depressed Physical Exam-([facility]) Physical Exam Vital Signs Capillary Refill : General Appearance: WD/WN, no apparent distress Respiratory: no respiratory distress, no accessory muscle use Cardiovascular: tachycardia Gastrointestinal: tenderness (suprapubic) Genital/Rectal: other (cervix open, yellow discharge at os, no active bleeding noted) Neurologic/Psychiatric: alert, normal mood/affect Skin: pallor Assessment/Plan Assessment/Plan Admission Status: Observation Assessment & Plan Possible septic miscarriage and/or retained products of conception- will check CBC, CMP, lactic acid and blood cultures. NS bolus and repeat US and start presumptive ampicillin, gentamicin and metronidazole. May need [employer] consult p ending US results. Trichomoniasis- trichomonas positive at clinic, metronidazole started as above. DIANA RAND MD Jan 26, 2021 16:22
[2021-01-26] MEDS ORDERED: ONDANSETRON 4 MG/2 ML (SDV) Z0FRAN IVP PRN (16:45)
[2021-01-26] MEDS ORDERED: NS IV ONE (16:45)
[2021-01-26] MEDS ORDERED: ACETAMINOPHEN 500 MG TAB (TYLENOL) PO PRN (16:45)
[2021-01-26] MEDS ORDERED: NS IV 1000 ML 1,000 ML ONE (17:01)
[2021-01-26 17:18] LABS: BASOPHILS % (AUTO) 0 % (0-10); EOSINOPHILS # (AUTO) 0.1 10^3/uL (0.0-0.3); EOSINOPHILS % (AUTO) 0 % (0-10); HEMATOCRIT 38 % (35-52); HEMOGLOBIN 12.4 g/dL (11.5-16.0); LYMPHOCYTES # (AUTO) 2.3 10^3/uL (1.0-4.0); LYMPHOCYTES % (AUTO) 20 % (12-44); MEAN CORPUSCULAR HEMOGLOBIN 29 pg (25-34); MEAN CORPUSCULAR HGB CONC 32 g/dL (32-36); MEAN CORPUSCULAR VOLUME 89 fL (80-99); MEAN PLATELET VOLUME 9.1 fL (9.0-12.2); MONOCYTES # (AUTO) 0.6 10^3/uL (0.0-1.0); MONOCYTES % (AUTO) 6 % (0-12); NEUTROPHILS # (AUTO) 8.1 10^3/uL (1.8-7.8); NEUTROPHILS % (AUTO) 73 % (42-75); PLATELET COUNT 390 10^3/uL (130-400); WHITE BLOOD COUNT 11.2 10^3/uL (4.3-11.0)
[2021-01-26 17:20] LABS: BILIRUBIN,URINE NEGATIVE (NEGATIVE); CLARITY,URINE SL CLOUDY; COLOR,URINE YELLOW; GLUCOSE, URINE (UA) NEGATIVE (NEGATIVE); KETONES,URINE NEGATIVE (NEGATIVE); LEUKOCYTE ESTERASE ,URINE 1+ (NEGATIVE); NITRITE,URINE POSITIVE (NEGATIVE); PH,URINE 5.5 (5-9); PROTEIN,URINE NEGATIVE (NEGATIVE)
[2021-01-26 17:24] LABS: BACTERIA,URINE LARGE /HPF; WBC,URINE 25-50 /HPF
[2021-01-26 17:25] LABS: TRICHOMONAS,URINE LARGE /HPF
[2021-01-26 17:42] LABS: ALBUMIN 4.2 GM/DL (3.2-4.5); BILIRUBIN,TOTAL 0.4 MG/DL (0.1-1.0); CALCIUM 9.7 MG/DL (8.5-10.1); CREATININE SERUM 0.77 MG/DL (0.60-1.30); TOTAL PROTEIN 7.4 GM/DL (6.4-8.2)
--- NOTE | 2021-01-26 17:58 | Diagnostic Imaging Report ---
INDICATION: Incomplete spontaneous . EXAMINATION: OB ultrasound. Uterus measures 8.5 x 4.4 x 6.0 cm. The endometrium appears heterogeneous. There is no evidence of an intrauterine gestational sac. There is vascularity within the endometrium in the uterine fundus. Endometrium measures 1.3 cm. The adnexa are unremarkable although neither ovary could be discretely identified. IMPRESSION: Ultrasound suggestive of retained products of conception. Dictated by: Dictated on workstation # [id number]
[2021-01-26] MEDS: NS IV 1000 ML 1,000 ML IV SCH (18:32)
[2021-01-26] MEDS: metroNIDAZOLE 500MG/100ML IVPB 100 ML IV SCH (18:33)
[2021-01-26 20:05] VITALS: BP 108/54
[2021-01-26] MEDS: AMPICILLIN FOR IV USE 2,000 MG in WATER (STERILE) FOR INJECTION 14.8 ML IV SCH (20:16)
[2021-01-26] MEDS: IBUPROFEN 800 MG (MOTRIN) TAB PO SCH (22:00)
[2021-01-27] VITALS (9 sets, daily range): BP systolic 94–120; BP diastolic 43–76
[2021-01-27] MEDS: AMPICILLIN FOR IV USE 2,000 MG in WATER (STERILE) FOR INJECTION 14.8 ML IV SCH (02:18)
[2021-01-27] MEDS: NS IV 1000 ML 1,000 ML IV SCH (03:14)
[2021-01-27 04:57] LABS: BASOPHILS % (AUTO) 1 % (0-10); EOSINOPHILS # (AUTO) 0.1 10^3/uL (0.0-0.3); EOSINOPHILS % (AUTO) 2 % (0-10); HEMATOCRIT 35 % (35-52); HEMOGLOBIN 11.5 g/dL (11.5-16.0); LYMPHOCYTES % (AUTO) 35 % (12-44); MEAN CORPUSCULAR HEMOGLOBIN 28 pg (25-34); MEAN CORPUSCULAR HGB CONC 33 g/dL (32-36); MEAN CORPUSCULAR VOLUME 87 fL (80-99); MEAN PLATELET VOLUME 9.1 fL (9.0-12.2); MONOCYTES # (AUTO) 0.7 10^3/uL (0.0-1.0); MONOCYTES % (AUTO) 8 % (0-12); NEUTROPHILS # (AUTO) 4.8 10^3/uL (1.8-7.8); NEUTROPHILS % (AUTO) 55 % (42-75); PLATELET COUNT 350 10^3/uL (130-400); WHITE BLOOD COUNT 8.6 10^3/uL (4.3-11.0)
[2021-01-27] MEDS: metroNIDAZOLE 500MG/100ML IVPB 100 ML IV SCH (06:29)
[2021-01-27] MEDS: IBUPROFEN 800 MG (MOTRIN) TAB PO SCH (06:29)
--- NOTE | 2021-01-27 07:21 | Consultation ---
History of Present Illness History of Present Illness Patient Consulted On(keyshawn/time) 01/27/21 07:20 Date Seen by Provider: Jan 27, 2021 Time Seen by Provider: 07:20 Reason for Visit: incomplete miscarriage History of Present Illness this is a 35 year old , AB 2 (1 ectopic) with history of first trimester bleeding and went to ED on 01/15/2021. She had US that revealed that she had a 6 week demise (no fetus but yolk sac seen.)She states that she has had continued bleeding since that time she states that no one did a pelvic exam in the emergency room so she does not know if her cervix was open. Her hCG though at that time was 26,000. She had then been seen at the clinic and her hCG was coming down. However she states she is continued to pass clots and yesterday passed several clots which is why she went back to the clinic to be evaluated. I was told that they were concerned about sepsis so she was admitted for IV antibiotics. However, sepsis has been ruled out is afebrile her blood pressure is normal, and her pulse is normal, her white blood cell count was 11.5. Her hemoglobin was 12.8. Patient also reports recent Covid infection. She states she might have been positive around 6 weeks gestation. did not require hospitalization. She did not have a high fever (though she states she did not check it, but felt hot). She was admitted overnight for IV antibiotics. On admission she had Trichomonas in the urine so she was also started on Flagyl. In addition she had nitrates in the urine and was started on Levaquin for this. She currently is on amp gent and Flagyl and then ended the additional Levaquin. Overnight she has not had much bleeding. But she states that she is just felt a little bit of wetness. She does have a previous history of miscarriage and ectopic requiring a right salpingectomy and appendectomy and D&C. We will plan a dilation and curettage today. The risk of this procedure including continued bleeding, infection, injury to bowel bladder and ureter, uterine perforation, anesthesia related risks, blood clots leg DVT and pulmonary embolism, have been explained to the patient. She understands the risks and chelsy l sign an appropriate consent for dilation and curettage. She is n.p.o. and I will use prophylactic SCDs. She is already received adequate antibiotics for a preop D&C. Allergies and Home Medications Allergies Coded Allergies: codeine (Verified Allergy, Unknown, 01/15/21) hydrocodone (Verified Allergy, Unknown, 03/10/17) Home Medications No Active Prescriptions or Reported Meds Patient Home Medication List Home Medication List Reviewed: Yes Past Jbboebf-Cykupi-Adysed Hx Patient Social History Tobacco Use?: No Smoking Status: Unknown if Ever Smoked Use of E-Cig and/or Vaping dev: No Use of E-Cig and/or Vaping Kar: Unknown if Ever Used Substance use?: No Alcohol Use?: No Immunizations Up To Date Tetanus Booster (TDap): More than 5yrs Seasonal Allergies Seasonal Allergies: No Past Medical History Surgeries: Yes (Tubal with right tube removed) Abdominal, Appendectomy Respiratory: No Cardiac: No Neurological: No : No Reproductive Disorders: No Female Reproductive Disorders: 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 Sexually Transmitted Disease: No HIV/AIDS: No Anxiety Family Medical History Heart Disease, Cancer Review of Systems-General Constitutional: no symptoms reported EENTM: see HPI Respiratory: see HPI Cardiovascular: no symptoms reported Gastrointestinal: abdominal pain (LLQ) Genitourinary: no symptoms reported : Yes Musculoskeletal: no symptoms reported Skin: no symptoms reported Psychiatric/Neurological: No Symptoms Reported Other Was "dehydrated" on admission (multiple IV sticks) and states she has "felt dehydrated" since she had barber virus All Other Systems Reviewed Negative Unless Noted: Yes Physical Exam-General Problems Physical Exam Vital Signs Vital Signs - First Documented 01/26/21 20:05 Temp 36.9 Pulse 82 Resp 16 B/P (MAP) 108/54 (72) Pulse Ox 98 O2 Delivery Room Air Capillary Refill : General Appearance: WD/WN Respiratory: chest non-tender, lungs clear Cardiovascular: regular rate, rhythm Genital/Rectal: other (deferred to surgery) Assessment/Plan Assessment/Plan Admission Diagnosis/Plan 1. Incomplete miscarriage 2. Possible retained products of conception 3. Trichomonas vaginitis 4. Possible UTI Plan dilation and curettage today See above Will DC home after the D&c and will continue antibiotics for UTI and trich at discharge. To follow up with me in the office for postoperative visit and to discuss further treatment for history of endometriosis. Admission Status: Other (Outpt Proc) CHARISMA ART DO Jan 27, 2021 07:21
--- NOTE | 2021-01-27 07:44 | Progress Note ---
Subjective Subjective/Events-last exam Joya maintained normal temperature overnight. She does read feeling much better more hydrated. Focused Exam Lactate Level 01/26/21 16:55: Lactic Acid Level 0.71 Objective Exam Last Set of Vital Signs Vital Signs Date Time Temp Pulse Resp B/P (MAP) Pulse Ox O2 Delivery O2 Flow Rate FiO2 01/27/21 04:50 36.5 72 16 102/58 (73) 98 Room Air Capillary Refill : I&O Intake and Output 01/27/21 00:00 Intake Total 323.8 ml Balance 323.8 ml IV Total 323.8 ml General: No Acute Distress Other physical findings No pelvic exam performed as she is having D&C by Dr. Corbett this morning. Results/Procedures Lab Laboratory Tests 01/26/21 16:50: Urine Color YELLOW, Urine Clarity SL CLOUDY, Urine pH 5.5, Urine Specific Gravit y >=1.030, Urine Protein NEGATIVE, Urine Glucose (UA) NEGATIVE, Urine Ketones NEGATIVE, Urine Nitrite POSITIVEH, Urine Bilirubin NEGATIVE, Urine Urobilinogen 0.2, Urine Leukocyte Esterase 1+H, Urine RBC (Auto) 3+H, Urine RBC 10-25H, Urine WBC 25-50H, Urine Squamous Epithelial Cells 5-10, Urine Crystals NONE, Urine Bacteria LARGEH, Urine Casts NONE, Urine Mucus NEGATIVE, Urine Trichomonas LARGEH, Urine Culture Indicated CULTURE PENDING 01/26/21 16:55: White Blood Count 11.2H, Red Blood Count 4.33, Hemoglobin 12.4, Hematocrit 38, Mean Corpuscular Volume 89, Mean Corpuscular Hemoglobin 29, Mean Corpuscular Hemoglobin Concent 32, Red Cell Distribution Width 12.4, Platelet Count 390, Mean Platelet Volume 9.1, Immature Granulocyte % (Auto) 0, Neutrophils (%) (Auto) 73, Lymphocytes (%) (Auto) 20, Monocytes (%) (Auto) 6, Eosinophils (%) (Auto) 0, Basophils (%) (Auto) 0, Neutrophils # (Auto) 8.1H, Lymphocytes # (Auto) 2.3, Monocytes # (Auto) 0.6, Eosinophils # (Auto) 0.1, Basophils # (Auto) 0.0, Immature Granulocyte # (Auto) 0.1, Sodium Level 137, Potassium Level 4.0, Chloride Level 106, Carbon Dioxide Level 23, Anion Gap 8, Blood Urea Nitrogen 10, Creatinine 0.77, Estimat Glomerular Filtration Rate 86, BUN/Creatinine Ratio 13, Glucose Level 80, Lactic Acid Level 0.71, Calcium Level 9.7, Corrected Calcium 9.5, Total Bilirubin 0.4, Aspartate Amino Transf (AST/SGOT) 21, Alanine Aminotransferase (ALT/SGPT) 28, Alkaline Phosphatase 64, Total Protein 7.4, Albumin 4.2 01/27/21 04:51: White Blood Count 8.6, Red Blood Count 4.05, Hemoglobin 11.5, Hematocrit 35, Mean Corpuscular Volume 87, Mean Corpuscular Hemoglobin 28, Mean Corpuscular Hemoglobin Concent 33, Red Cell Distribution Width 12.4, Platelet Count 350, Mean Platelet Volume 9.1, Immature Granulocyte % (Auto) 0, Neutrophils (%) (Auto) 55, Lymphocytes (%) (Auto) 35, Monocytes (%) (Auto) 8, Eosinophils (%) (Auto) 2, Basophils (%) (Auto) 1, Neutrophils # (Auto) 4.8, Lymphocytes # (Auto) 3.0, Monocytes # (Auto) 0.7, Eosinophils # (Auto) 0.1, Basophils # (Auto) 0.0, Immature Granulocyte # (Auto) 0.0 01/27/21 04:57: Random Gentamicin Level 1.6 Assessment/Plan Assessment/Plan Admission Dx 1. Incomplete AB with retained products of conception--initially felt possibly to be septic 2. Urinary tract infection 3. Trichomoniasis Admission Status: Inpatient Order (span 2 midnights) Reason for Inpatient Admission: IV antibiotics IV fluid rehydration. Consultation with Dr. Corbett Assessment & Plan 1. Incomplete AB with retained products of conception -Plan is for D&C this morning performed by Dr. Corbett -Provided no complications she will be discharged to home later today -Hemoglobin remained stable 2. Urinary tract infection -She has received ampicillin and gentamicin. The gentamicin is now discontinued and she has received 1 dose of Levaquin -White blood cell count remains normalized 3. Trichomoniasis- trichomonas positive at clinic, metronidazole started as above. -Flagyl has been given IV since admission HARLEY WATKINS MD Jan 27, 2021 07:44
[2021-01-27] MEDS ORDERED: LIDOCAINE PF 2% 5 ML (XYLOCAINE) VIAL ONE (08:20)
[2021-01-27] MEDS ORDERED: fentaNYL INJ 100 MCG/2 ML AMP ONE (08:20)
[2021-01-27] MEDS ORDERED: MIDAZOLAM 2 MG/2 ML (VERSED) VIAL ONE (08:20)
[2021-01-27] MEDS ORDERED: proPOfol 200 MG/20 ML (DIPRIVAN) VIAL IV ONE (08:20)
[2021-01-27] MEDS ORDERED: IBUP-1780 PO (08:34)
[2021-01-27] MEDS ORDERED: HYDR2TAB30 PO ×2 (08:34→09:09)
[2021-01-27] MEDS ORDERED: ACET-93 PO (08:34)
--- NOTE | 2021-01-27 08:36 | Discharge Inst-Women's Service ---
Discharge Inst-Women's Serv Depart Medication/Instructions New, Converted or Re-Newed RX: Transmitted to Pharmacy Final Diagnosis incomplete /miscarriage trichomoniasis Urinary tract infection Problems Reviewed?: Yes Consults/Follow Up Additional Follow Up: Yes (2-[address] Art; Call to set up appointment to [phone]) Activity Activity: Activity as Tolerated Driving Instructions: No Driving for 24 Hours NO SMOKING: NO SMOKING Nothing Inside Vagina: No Douching, No Century, No Tampons Diet Discharge Diet: No Restrictions Symptoms to Report to : Swelling Increased, Bleeding Excessive, Pain Increased, Fever Over 101 Degrees F, Vaginal Bleeding Increase, Cramps in Feet or Legs, Vaginal Discharge Foul For Any Problems or Questions: Contact Your Physician CHARISMA ART DO Jan 27, 2021 08:36
[2021-01-27] MEDS ORDERED: METR-145 PO (08:37)
[2021-01-27] MEDS ORDERED: CIPR500T5 PO (08:37)
--- NOTE | 2021-01-27 08:41 | Operative Report ---
Operative Report Date of Procedure/Surgery Jan 27, 2021 Surgeon (s) CHARISMA ART DO Front Desk Host (s): NA Post-Operative Diagnosis Incomplete miscarriage/ Procedure Performed dilation and curettage Description of Procedure Anesthesia Type: General Estimated blood loss (mL): 50 Specimen(s) collected/removed products of conception/endometrial curettings Description of the Procedure With informed consent the patient was taken to the operating room where general anesthesia was found to be adequate. She was then prepped and draped in the usual sterile fashion in the dorsolithotomy position. The bladder was drained of clearr, yellow urine with a straight catheter. A speculum was placed in the vagina and the cervix grasped with a tenaculum. There was a small amount of blood at the cervical os. The cervix was then gently dilated with Natalio dilators and then a curette was introduced into the uterus. A gentle curette was done until a gritty texture was felt (uterine cry). The tenaculum was removed from the cervix and the minimal bleeding was contr olled with pressure from a ring forceps. The instruments were removed and the patient was awakened and taken to recovery in stable condition. Sponge, lap, and instrument counts were correct times two. Due to the diagnosis of trichomoniasis and probable UTI, she will be continued on oral antibiotic to complete the course of treatment. Findings of the Procedure small amount of what appears to be retained products of conception Allergies and Home Medications Allergies Coded Allergies: codeine (Verified Allergy, Unknown, 01/15/21) hydrocodone (Verified Allergy, Unknown, 03/10/17) Home Medications Acetaminophen 500 Mg Tablet, 1,000 MG PO Q8HR PRN for pain Prescribed by: CHARISMA ART on 01/27/21 0834 Ciprofloxacin HCl 500 Mg Tablet, 500 MG PO BID Prescribed by: CHARISMA ART on 01/27/21 0837 Hydromorphone HCl 2 Mg Tablet, 2 MG PO Q6H Prescribed by: CHARISMA ART on 01/27/21 0834 Ibuprofen 800 Mg Tablet, 800 MG PO Q8HR Prescribed by: CHARISMA ART on 01/27/2134 Metronidazole 500 Mg Tablet, 500 MG PO BID Prescribed by: CHARISMA ART on 01/27/21 0837 Patient Home Medication List Home Medication List Reviewed: Yes CHARISMA ART DO Jan 27, 2021 08:41
[2021-01-27] MEDS ORDERED: D5 LR IV SOLUTION 1,000 ML IV SCH (08:45)
[2021-01-27] MEDS ORDERED: ONDANSETRON 4 MG/2 ML (SDV) Z0FRAN IVP PRN (08:45)
[2021-01-27] MEDS ORDERED: KETOROLAC 30 MG/ML VIAL IVP ONE ×2 (08:45)
[2021-01-27] MEDS ORDERED: SEVOFLURANE (ULTANE) 15 ML INHAL SOLN ONE (09:09)
[2021-01-27] MEDS ORDERED: KETOROLAC 30 MG/ML VIAL ONE (09:10)
[2021-01-27] MEDS ORDERED: ONDANSETRON 4 MG/2 ML (SDV) Z0FRAN ONE (09:10)
[2021-01-27] MEDS ORDERED: LACTATED RINGERS 1,000 ML IV ONE (09:27)
--- NOTE | 2021-01-27 13:22 | Anesthesia-General Post-Op ---
General Patient Condition Mental Status/LOC: Same as Preop Cardiovascular: Satisfactory Nausea/Vomiting: Absent Respiratory: Satisfactory Pain: Controlled Complications: Absent Post Op Complications Complications None Follow Up Care/Instructions Patient Instructions None needed. Anesthesia/Patient Condition Patient Condition Patient is doing well, no complaints, stable vital signs, no apparent adverse anesthesia problems. No complications reported per nursing. TASIA PEREZ CRNA Jan 27, 2021 13:22
[2021-01-27] MEDS ORDERED: NS IV SCH (20:00)
[2021-01-27] MEDS ORDERED: GENTAMICIN IV SCH (20:00)
== END 2021-01-27 13:00 | disposition home or self-care (01) ==
LOC: UNDOADMOB 16:00 → WS 16:00 → WSo 16:00 → EDSTATUS 16:48 → WSo 01-27 13:00 → UNDODISOB 01-27 13:00
PROVIDERS: ATTEND Family Medicine
DX: O03.4 Incomplete spontaneous abortion without complication (principal); A59.01 Trichomonal vulvovaginitis; Z79.2 Long term (current) use of antibiotics; Z79.1 Long term (current) use of non-steroidal anti-inflammatories (NSAID); Z88.5 Allergy status to narcotic agent; Z79.899 Other long term (current) drug therapy; Z98.51 Tubal ligation status
CPT/HCPCS: 36415; 76817; 80053; 80170; 81000; 83605; 85025; 86850; 86900; 86901; 87040; 87077; 87081; 87088; 87186; 88305; 96361; 96374; 96375; 96376

== ENCOUNTER → 2021-09-18 | Outpatient (CLI) | payer MEDICAID ==
[~2021-09-18] MED LIST changes: +ACET-93 PO; +CIPR500T5 PO; -GENTAMICIN (ADULT) INJECTION 0.1 MG in NS (IVPB) 100 ML IV NR; -GENTAMICIN IV NR; +HYDR2TAB30 PO; +IBUP-1780 PO; +METR-145 PO; -NS IV NR
--- NOTE | 2021-09-18 16:11 | Diagnostic Imaging Report ---
PROCEDURE: Pelvic comp/transvaginal sonogram. TECHNIQUE: Complete transabdominal and transvaginal pelvic ultrasound was performed. In addition, limited pelvic Doppler was performed. INDICATION: Dyspareunia. FINDINGS: The uterus is anteverted measuring 9.2 x 5.8 x 4.3 cm. The uterus may be septate in configuration. The endometrium is approximately 8 mm in thickness. No myometrial mass is identified. The right ovary measures 2.0 x 1.7 x 1.5 cm and the left ovary measures 2.7 x 2.3 x 2.0 cm. There is blood flow to both ovaries. No adnexal mass or free fluid is seen. IMPRESSION: Probable septate uterus. The study is otherwise unremarkable. Dictated by: Dictated on workstation # [id number]
== END ==
LOC: RAD 14:50
PROVIDERS: ATTEND Obstetrics & Gynecology
DX: N94.10 Unspecified dyspareunia (principal)
CPT/HCPCS: 76830; 76856

== ENCOUNTER 2021-10-04 05:38 | Outpatient (CLI) | payer MEDICAID ==
[~2021-10-04] VITALS: Ht 162.6 cm; Wt 72.7 kg
== END 2021-10-09 13:55 | disposition home or self-care (01) ==
LOC: PREOP 05:38
PROVIDERS: ATTEND Obstetrics & Gynecology
DX: Z01.818 Encounter for other preprocedural examination (principal)

== ENCOUNTER 2021-10-11 06:01 | Day surgery (SDC) | payer MEDICAID ==
[2021-10-11] VITALS (11 sets, daily range): BP systolic 98–145; BP diastolic 64–95
[~2021-10-11] VITALS: Ht 162.6 cm; Wt 72.7 kg
[2021-10-11] MEDS: LACTATED RINGERS 1,000 ML IV PRN ×2 (06:29→08:05)
--- NOTE | 2021-10-11 07:01 | Progress Note-Pre Operative ---
Pre-Operative Progress Note H&P Reviewed The H&P was reviewed, patient examined and no changes noted. Time Seen by Provider: 06:50 Date H&P Reviewed: Oct 11, 2021 Time H&P Reviewed: 06:50 Pre-Operative Diagnosis: dysmenorrhea, pelvic pain, possible septate uterus DEV WEEMS MD Oct 11, 2021 07:01
[2021-10-11] MEDS ORDERED: LIDOCAINE/EPI 2% 1:100,00 (XYLOCAINE) 20 ML VIAL ONE (07:08)
[2021-10-11] MEDS ORDERED: NEOSTIGMINE 3 MG/3 ML VIAL ONE (07:13)
[2021-10-11] MEDS ORDERED: MIDAZOLAM 2 MG/2 ML (VERSED) VIAL ONE (07:13)
[2021-10-11] MEDS ORDERED: proPOfol 200 MG/20 ML (DIPRIVAN) VIAL IV ONE (07:13)
[2021-10-11] MEDS ORDERED: GLYCOPYRROLATE 0.2 MG/ML (ROBINUL) 2 ML VIAL ONE (07:13)
[2021-10-11] MEDS ORDERED: ROCURONIUM 10 MG/ML 5 ML SYRINGE IV ONE (07:13)
[2021-10-11] MEDS ORDERED: fentaNYL INJ 100 MCG/2 ML AMP ONE (07:13)
[2021-10-11] MEDS ORDERED: ONDANSETRON 4 MG/2 ML (SDV) Z0FRAN ONE (07:13)
[2021-10-11] MEDS ORDERED: LIDOCAINE PF 2% 5 ML (XYLOCAINE) VIAL ONE (07:13)
[2021-10-11] MEDS ORDERED: D5 LR IV SOLUTION 1,000 ML IV SCH ×2 (07:15)
[2021-10-11] MEDS ORDERED: ONDANSETRON 4 MG/2 ML (SDV) Z0FRAN IVP PRN ×3 (07:15→09:15)
[2021-10-11] MEDS ORDERED: ACETAMINOPHEN 500 MG TAB (TYLENOL) PO PRN (07:15)
[2021-10-11] MEDS ORDERED: KETOROLAC 30 MG/ML VIAL IVP ONE ×2 (07:15)
[2021-10-11] MEDS ORDERED: HYDROmorphone (DILAUDID) 2 MG TAB PO PRN (07:15)
[2021-10-11] MEDS ORDERED: IBUP-1773 PO (07:16)
[2021-10-11] MEDS ORDERED: HYDROmorphone 2 MG/ML VIAL (DILAUDID) ONE (08:08)
[2021-10-11] MEDS ORDERED: SEVOFLURANE (ULTANE) 15 ML INHAL SOLN ONE (08:42)
--- NOTE | 2021-10-11 08:58 | OB/GYN Operative Report ---
Operative Report Date of Procedure:Oct 11, 2021 Preoperative Diagnosis: [Dysmenorrhea and sono finding of possible septate uterus] Postoperative Diagnosis: [Endometriosis with arcuate uterus] Name of the Procedure: [Diagnostic laparoscopy with fulguration of endometriosis, hysteroscopy with endometrial biopsy] Surgeon: Dev Weems Cream Gatherer(s): [none] Anesthesia: [General] Indications for Procedure: [Pelvic pain with dysmenorrhea] Findings of the Procedure: [Endometriotic implant noted in the right cul-de-sac along the right uterosacral ligament and in the left pelvic sidewall as well as 2 areas on the left ovary] Procedure: [] After the risk benefits alternatives of the procedure were described to the patient she was taken to the operating room where general anesthesia was obtained that difficulty. She was placed in dorsolithotomy position and prepped and draped in the usual sterile fashion with Mccarty catheter and SCDs in place. A weighted speculum was placed in the patient's vagina and the anterior lip of the cervix grasped with a double-tooth tenaculum. A HUMI uterine manipulator was assembled and the usual sterile fashion. Attention was then turned to the abdominal portion of the procedure. A 5 mm skin incision was made in the umbilicus and a varies needle was advanced while tenting the abdominal wall upward. Pneumoperitoneum was achieved and the varies needle was removed. A 5 mm trocar and sleeve were advanced under direct visualization with the laparoscope without difficulty. Smooth liver edge was noted and she was placed in Trendelenburg. The pelvis was surveyed with the above findings including absence of the right fallopian tube with surgical clips on the proximal side. Normal-appearing right ovary. Ureters coursed with normal caliber over the pelvic brim and the anticipated anatomic location. The left fallopian tube was unremarkable as was the anterior cul-de-sac. The left ovary had to chocolate colored spots measuring less than 3 mm which were fulgurated with Kleppinger bipolar cautery. The left pelvic sidewall was unremarkable other than to white powder spiderweb lesions superior to the left uterosacral ligament which were also fulgurated without difficulty after confirmation of ability to do so without injuring the ureter. The posterior cul-de-sac along the right side had a 5 mm endometriotic implant with a 2 mm darkened component in the center which was fulgurated also without difficulty. An endometriotic white powder burn appearing lesion was noted on the uterosacral ligament on the right side at the juncture with the uterus. No other endometriotic lesions or implants were appreciated and all instruments removed from the patient's abdomen. The skin incisions were closed with subcuticular 4 Monocryl stitch Dermabond dressing was placed and local lidocaine injected for postoperative pain. Attention was turned back to the vaginal portion of the procedure. The Mccarty catheter and manipulator were removed and a weighted speculum was placed in the patient's vagina. The anterior lip of the cervix grasped with a double-tooth tenaculum and the cervix appreciated to be dilated to accommodate a 5 mm true clear hysteroscope which was advanced under direct visualization without difficulty. Bilateral tubal ostia were visualized without difficulty. No masses polyps or fibroids were noted. No mosaicism or abnormal thickening of the endometrium were noted. The fundus did dip inward consistent with arcuate formation. The incisor was used to obtain a biopsy from throughout the cavity as it did have an erythematous appearance. All instruments removed from the patient's vagina. Nevus was noted on her left buttocks with a small amount of brown at the very apex otherwise was skin colored consistent with a skin tag. Discussed with her significant other who asked for it to not be removed but be followed clinically. Patient tolerated the procedure well sponge lap needle instrument counts were correct and she was taken to the recovery room awake and in stable condition. Complications: None Disposition: [Stable] DEV WEEMS MD Oct 11, 2021 08:58
[2021-10-11] MEDS ORDERED: morphine INJ 10 MG/ML 1ML (SYR OR VIAL) IVP ONE (09:15)
[2021-10-11] MEDS ORDERED: HYDROmorphone 2 MG/ML VIAL (DILAUDID) IV ONE (09:15)
[2021-10-11] MEDS ORDERED: KETOROLAC 30 MG/ML VIAL ONE (09:25)
--- NOTE | 2021-10-11 09:38 | Anesthesia-General Post-Op ---
General Patient Condition Mental Status/LOC: Same as Preop Cardiovascular: Satisfactory Nausea/Vomiting: Absent Respiratory: Satisfactory Pain: Controlled Complications: Absent Post Op Complications Complications None Follow Up Care/Instructions Patient Instructions None needed. Anesthesia/Patient Condition Patient Condition Patient is doing well in PACU, C/O some abdominal pain which is to be expected, stable vital signs, no apparent adverse anesthesia problems. COLLETTE ENCISO DO Oct 11, 2021 09:38
== END 2021-10-11 11:15 | disposition home or self-care (01) ==
LOC: SDC 06:01
PROVIDERS: ATTEND Obstetrics & Gynecology
DX: N80.9 Endometriosis, unspecified (principal); N94.6 Dysmenorrhea, unspecified; N94.10 Unspecified dyspareunia; Q51.810 Arcuate uterus; F17.210 Nicotine dependence, cigarettes, uncomplicated
CPT/HCPCS: 84703; 87081; 88305

== ENCOUNTER 2022-07-06 16:24 | Emergency (ER) | payer MEDICAID ==
[~2022-07-06] VITALS: Ht 162.5 cm; Wt 65.3 kg
[~2022-07-06 16:24] MED LIST changes: +IBUP-1773 PO
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
[2022-07-06 16:46] VITALS: BP 141/88
== END 2022-07-06 16:47 | disposition home or self-care (01) ==
LOC: EDUNIT# 16:24 → ER 16:26
DX: T28.0XXA Burn of mouth and pharynx, initial encounter (principal); X19.XXXA Contact with other heat and hot substances, initial encounter
CPT/HCPCS: 99281